=== PATIENT | male | born 1985 | race Two or more races ===

== ENCOUNTER 2024-04-28 23:51 | Emergency (ER) | payer OTHER ==
[2024-04-29 00:05] VITALS: BP 128/74; PULSE 68; RESP 20; TEMP 98.1; BMI 27.3
[2024-04-29] MEDS ORDERED: SUCRALFATE 1 GM TABLET (FP) ONE (02:46)
[2024-04-29] MEDS: SUCRALFATE 1 GM/10 ML UNIT DOSE CUPS PO ONE (02:49)
== END 2024-04-29 03:53 | disposition home or self-care (01) ==
LOC: JER 23:51
DX: R10.10 Upper abdominal pain, unspecified (principal)
CPT/HCPCS: 71045-TC-FY; 93005; 93010; 99284-25

== ENCOUNTER 2024-05-15 12:45 | Emergency (ER) | payer OTHER ==
[2024-05-15 12:51] VITALS: BP 138/88; PULSE 107; RESP 20; TEMP 98.9; BMI 27.3
[2024-05-15 14:45] LABS: BASO % 0.6 % (0-2.0); EOS % 1.5 % (0-4.5); HEMOGLOBIN 15.8 GM/dL (11.7-16.9); LYMPH % 17.3 % (8-40); MCH 29.8 pg (25.7-33.7); MCHC 35.1 g/dl (32.0-35.9); MONO % 5.6 % (3.8-10.2); PLATELET COUNT 230 10^3/uL (134-434); RBC 5.29 M/mm3 (4.00-5.60); RDW 12.8 % (11.9-15.9); WHITE BLOOD COUNT 7.3 K/mm3 (4.0-10.0)
[2024-05-15 15:13] LABS: POTASSIUM 3.8 mmol/L (3.5-5.1)
[2024-05-15 15:15] LABS: ALBUMIN 4.3 g/dl (3.4-5.0); BLOOD UREA NITROGEN 15.4 mg/dL (7-18); CALCIUM 9.2 mg/dL (8.5-10.1); MAGNESIUM 2.1 mg/dL (1.8-2.4)
[2024-05-15 15:18] LABS: CREATININE 0.9 mg/dL (0.55-1.3)
[2024-05-15 15:20] LABS: BILIRUBIN,TOTAL 0.6 mg/dL (0.2-1); TOT PROT 7.6 g/dl (6.4-8.2)
[2024-05-15] MEDS ORDERED: ONDANSETRON 4 MG/2 ML VIAL ONE (17:37)
[2024-05-15] MEDS: ONDANSETRON 4 MG/2 ML VIAL IVPUSH ONE (17:44)
[2024-05-15] MEDS ORDERED: ACETAMINOPHEN INJECTION 100 ML IVPB ONE (19:59)
[2024-05-15] MEDS ORDERED: FAMOTIDINE 20 MG/50 ML IVPB 20 MG/50 ML MG IVPB ONE (19:59)
[2024-05-15] MEDS ORDERED: MAG HYDROX/AL HYDROX/SIMETH 30 ML UNIT-DOSE CUP ONE (19:59)
[2024-05-15] MEDS: ACETAMINOPHEN 1000 MG/100 ML BAG IVPB ONE (20:09)
[2024-05-15] MEDS: MAG HYDROX/AL HYDROX/SIMETH 30 ML UNIT-DOSE CUP PO ONE (20:09)
[2024-05-15] MEDS: FAMOTIDINE 20 MG/50 ML IVPB 20 MG/50 ML MG IVPB ONE (20:09)
== END 2024-05-15 22:19 | disposition home or self-care (01) ==
LOC: JER 12:45
PROC: 3E033GC Introduction of Other Therapeutic Substance into Peripheral Vein, Percutaneous Approach (ICD-10-PCS; principal; 2024-05-15)
PROC: 3E033NZ Introduction of Analgesics, Hypnotics, Sedatives into Peripheral Vein, Percutaneous Approach (ICD-10-PCS; 2024-05-15)
PROC: 3E033GC Introduction of Other Therapeutic Substance into Peripheral Vein, Percutaneous Approach (ICD-10-PCS; 2024-05-15)
DX: K42.9 Umbilical hernia without obstruction or gangrene (principal); R00.2 Palpitations; R07.9 Chest pain, unspecified; R10.11 Right upper quadrant pain; R10.33 Periumbilical pain; R11.2 Nausea with vomiting, unspecified
CPT/HCPCS: 36415; 74177-TC; 76705-TC; 80053; 83605; 83690; 83735; 84484; 85025; 93005; 93010; 96365; 96375; 99285-25; J0131; Q9967